=== PATIENT | female | born 1995 | race Two or more races ===

== ENCOUNTER 2017-08-08 22:17 | Emergency (ER) | payer OTHER ==
[2017-08-08 22:22] VITALS: BP 102/70
== END 2017-08-08 22:26 | disposition left against medical advice (07) ==
LOC: ED 22:17
DX: L50.9 Urticaria, unspecified (principal); Z53.21 Procedure and treatment not carried out due to patient leaving prior to being seen by health care provider

== ENCOUNTER → 2018-09-06 13:39 | Emergency (ER) | payer OTHER ==
[~2018-09-06 13:39] MED LIST: Ketorolac INJ* 30 MG/ML 1 ML VIAL IV PUSH ONE; Ondansetron INJ* 2 MG/ML VIAL IV ONE
[2018-09-06 14:57] LABS: Hematocrit 35 % (35-47); Hemoglobin 11.3 g/dl (12.0-16.0); Mean Corpuscular HGB Conc 33 g/dl (31-36); Mean Corpuscular Hemoglobin 19 pg (27-31); Mean Corpuscular Volume 58 fL (80-97); Mean Platelet Volume 8.6 um3 (7.4-10.4); Platelet Count 304 10^3/ul (150-450); Red Blood Count 5.92 10^6/ul (4.00-5.40); Red Cell Distribution Width 17 % (10.5-15); White Blood Count 9.2 10^3/ul (3.5-10.8)
[2018-09-06 15:13] LABS: EGFR Non-African American 150.8 (>60)
--- NOTE | 2018-09-06 15:48 | RAD ---
INDICATION: Right upper quadrant pain. COMPARISON: There are no relevant prior studies available for comparison. TECHNIQUE: Multiple real-time images of the right upper quadrant were obtained. FINDINGS: The gallbladder appear normal. No gallstones, gallbladder wall thickening or pericholecystic fluid is present. No intra or extrahepatic ductal distention is present. The common bile duct measured 0.2 cm in diameter. The liver is normal in size without significant focal abnormality. The pancreas is partially obscured by overlying bowel gas. The right kidney is normal in size without evidence for hydronephrosis. IMPRESSION: NEGATIVE EXAM.
[2018-09-06 16:06] LABS: ABS Basophils 0.1 10^3/ul (0-0.2); ABS Eosinophils 0.1 10^3/ul (0-0.6); ABS Lymphocytes 2.7 10^3/ul (1.0-4.8); ABS Monocytes 0.6 10^3/ul (0-0.8); ABS Neutrophils 5.8 10^3/ul (1.5-7.7); ABS Nucleated RBC 0 10^3/ul; Eosinophil % 0.6 % (0-6); Lymphocyte % 29.8 % (25-47); Nucleated Red Blood Cells % 0.1
[2018-09-06 16:30] LABS: Urine Appearance Cloudy; Urine Blood Negative (Negative); Urine Color Yellow; Urine Ketones Negative (Negative); Urine Protein Negative (Negative); Urine Red Blood Cell Trace(0-2/hpf) (Absent); Urine Specific Gravity 1.014 (1.010-1.030); Urine Urobilinogen Negative (Negative); Urine White Blood Cell Trace(0-5/hpf) (Absent)
--- NOTE | 2018-09-06 16:45 | ED ---
Abdominal Pain/Female - HPI Summary HPI Summary: Patient is a 23-year-old female who presents emergency department for right upper quadrant abdominal pain that started yesterday. Patient was initially seen at [facility] referred to the ER for further evaluation. I did speak with referring physician who states the patient did have an x-ray at [facility] and it showed constipation. Patient states she has had a bowel movement since x -ray and her pain persists. She is no past medical history. Associated symptoms of nausea. Pain is worse increased with food and movement.. She denies fever, chills, vomiting, diarrhea, urinary symptoms, vaginal discharge or bleeding. She denies recent illness, fever, cough. Symptoms are moderate in severity. - History of Current Complaint Chief Complaint: EDAbdPain Stated Complaint: ABDOMINAL PAIN Time Seen by Provider: 09/06/18 14:00 Hx Obtained From: Patient Pain Intensity: 5 Allergies/Adverse Reactions: Allergies Allergy/AdvReac Type Severity Reaction Status Date / Time kiwi Allergy Swelling Verified 09/06/18 13:50 Of Face,Lips,& Throat Home Medications: Home Medications NK [No Home Medications Reported] 09/06/18 [History Confirmed 09/06/18] PMH/Surg Hx/FS Hx/Imm Hx Previously Healthy: Yes Infectious Disease History: No Infectious Disease History: Reports: Traveled Outside the [place] in Last 30 Days - back from 08/24 - Family History Known Family History: Positive: Other - Noncontributory - Social History Occupation: Student Lives: Dormitory/Roommates Alcohol Use: Occasionally Substance Use Type: Reports: None Smoking Status (MU): Never Smoked Tobacco Review of Systems Constitutional: Negative Negative: Fever, Chills Eyes: Negative ENT: Negative Cardiovascular: Negative Respiratory: Negative Negative: Shortness Of Breath, Cough Positive: Abdominal Pain, Nausea. Negative: Vomiting, Diarrhea Genitourinary: Negative Neurological: Negative All Other Systems Reviewed And Are Negative: Yes Physical Exam Triage Information Reviewed: Yes Vital Signs On Initial Exam: Initial Vitals Temp Pulse Resp BP Pulse Ox 98 F 97 16 116/79 99 09/06/18 13:46 09/06/18 13:46 09/06/18 13:46 09/06/18 13:46 09/06/18 13:46 Vital Signs Reviewed: Yes Appearance: Positive: Well-Appearing - Pt. sitting on bed in no acute distress. Friend present. Skin: Positive: Warm, Dry Head/Face: Positive: Normal Head/Face Inspection Eyes: Positive: Normal, EOMI, Conjunctiva Clear ENT: Positive: Pharynx normal, TMs normal Neck: Positive: Supple Respiratory/Lung Sounds: Positive: Clear to Auscultation, Breath Sounds Present Cardiovascular: Positive: Normal, RRR Abdomen Description: Positive: Other: - Abd. is soft with pain over the RUQ. Mildly positive Cook sign. No pain at Mcburney's point. No rebound tenderness or guarding. Neurological: Positive: Normal, CN Intact II-III Psychiatric: Positive: Affect/Mood Appropriate Diagnostics - Vital Signs Vital Signs Temp Pulse Resp BP Pulse Ox 09/06/18 13:46 98 F 97 16 116/79 99 - Laboratory Lab Results: Lab Results 09/06/18 09/06/18 09/06/18 Range/Units 14:39 14:39 15:57 WBC 9.2 (3.5-10.8) 10^3/ul RBC 5.92 H (4.00-5.40) 10^6/ul Hgb 11.3 L (12.0-16.0) g/dl Hct 35 (35-47) % MCV 58 L (80-97) fL MCH 19 L (27-31) pg MCHC 33 (31-36) g/dl RDW 17 H (10.5-15) % Plt Count 304 (150-450) 10^3/ul MPV 8.6 (7.4-10.4) um3 Neut % (Auto) 62.5 (38-83) % Lymph % (Auto) 29.8 (25-47) % [place] % (Auto) 6.2 (0-7) % Eos % (Auto) 0.6 (0-6) % Baso % (Auto) 0.9 (0-2) % Absolute Neuts (auto) 5.8 (1.5-7.7) 10^3/ul Absolute Lymphs (auto) 2.7 (1.0-4.8) 10^3/ul Absolute Monos (auto) 0.6 (0-0.8) 10^3/ul Absolute Eos (auto) 0.1 (0-0.6) 10^3/ul Absolute Basos (auto) 0.1 (0-0.2) 10^3/ul Absolute Nucleated RBC 0 10^3/ul Nucleated RBC % 0.1 Hypochromasia 1+ Microcytosis 2+ Hem Pathologist Commnt Pending Sodium 137 (135-145) mmol/L Potassium 3.9 (3.5-5.0) mmol/L Chloride 106 (101-111) mmol/L Carbon Dioxide 27 (22-32) mmol/L Anion Gap 4 (2-11) mmol/L BUN 9 (6-24) mg/dL Creatinine 0.51 (0.51-0.95) mg/dL Est GFR ( Amer) 182.5 (>60) Est GFR (Non-Af Amer) 150.8 (>60) BUN/Creatinine Ratio 17.6 (8-20) Glucose 86 (70-100) mg/dL Calcium 9.1 (8.6-10.3) mg/dL Total Bilirubin 0.70 (0.2-1.0) mg/dL AST 9 L (13-39) U/L ALT 8 (7-52) U/L Alkaline Phosphatase 45 (34-104) U/L Total Protein 6.8 (6.4-8.9) g/dL Albumin 4.0 (3.2-5.2) g/dL Globulin 2.8 (2-4) g/dL Albumin/Globulin Ratio 1.4 (1-3) Beta HCG, Quant < 0.60 mIU/mL Urine Color Yellow Urine Appearance Cloudy Urine pH 7.0 (5-9) Ur Specific [place] 1.014 (1.010-1.030) Urine Protein Negative (Negative) Urine Ketones Negative (Negative) Urine Blood Negative (Negative) Urine Nitrate Negative (Negative) Urine Bilirubin Negative (Negative) Urine Urobilinogen Negative (Negative) Ur Leukocyte Esterase 3+ A (Negative) Urine WBC (Auto) Trace(0-5/hpf) (Absent) Urine RBC (Auto) Trace(0-2/hpf) (Absent) Ur Squamous Epith Cells Present A (Absent) Urine Bacteria 1+ A (Absent) Urine Glucose Negative (Negative) Result Diagrams: 09/06/18 14:39 09/06/18 14:39 Lab Statement: Any lab studies that have been ordered have been reviewed, and results considered in the medical decision making process. Abdominal Pain Fem Course/Dx - Course Course Of Treatment: Patient presenting with right upper quadrant abdominal pain and nausea. She is afebrile well-appearing. We'll obtain gallbladder ultrasound further evaluation and basic labs. We'll give IV Toradol and Zofran and reassess. Blood work is unremarkable including negative and negative urinalysis. Gallbladder ultrasound shows no abnormalities to liver gallbladder or kidney, reading per radiology. Reexamination patient is resting more comfortably and her pain has improved. Her abdomen was reexamined and she has minimal tenderness to the right upper quadrant at this time. Unclear of exact etiology of patient's pain. She is comfortable with close follow-up at [facility] if pain persists. Recommend anti-inflammatories. Discussed possible need for HIDA scan for further evaluation if right upper quadrant pain persists. Advised to return to the ER for increased pain, vomiting, fever or if concerned. Patient understands and agrees with plan. - Diagnoses Differential Diagnosis: Positive: Constipation, Ectopic , Gall Bladder Disease, Hepatitis, Ovarian Cyst, Pneumonia, , Renal Colic Provider Diagnoses: Abdominal pain Discharge - Sign-Out/Discharge Documenting (check all that apply): Patient Departure - Discharge Plan Condition: Good Disposition: HOME Patient Education Materials: Biliary Colic (ED), Abdominal Pain (ED) Referrals: No Primary Care Phys,NOPCP [Primary Care Provider] - [facility] [Outside] Additional Instructions: Call the [facility] tomorrow to schedule a follow up appointment NSAIDS for pain as directed such as ibuprofen Return to ER for increased pain, fever, vomiting or if concerned - Billing Disposition and Condition Condition: GOOD Disposition: Home
[2018-09-06 17:20] VITALS: BP 96/66
== END | disposition home or self-care (01) ==
LOC: ED 13:39
DX: R10.11 Right upper quadrant pain (principal)
CPT/HCPCS: 36415; 76705; 80053; 81003; 81015; 84702; 85025; 85060; 87086; 96374; 96375; 99283; J1885; J2405

== ENCOUNTER 2018-09-08 14:30 | Emergency (ER) | payer OTHER, BC ==
[2018-09-08] MEDS ORDERED: NS 0.9% 1000 ML* 1,000 ML IV ONE (16:13)
[2018-09-08 16:40] LABS: ABS Basophils 0.1 10^3/ul (0-0.2); ABS Eosinophils 0.1 10^3/ul (0-0.6); ABS Lymphocytes 2.7 10^3/ul (1.0-4.8); ABS Monocytes 0.6 10^3/ul (0-0.8); ABS Neutrophils 7.3 10^3/ul (1.5-7.7); ABS Nucleated RBC 0 10^3/ul; Eosinophil % 0.7 % (0-6); Hematocrit 35 % (35-47); Hemoglobin 11.2 g/dl (12.0-16.0); Lymphocyte % 25.1 % (25-47); Mean Corpuscular HGB Conc 32 g/dl (31-36); Mean Corpuscular Hemoglobin 19 pg (27-31); Mean Corpuscular Volume 58 fL (80-97); Mean Platelet Volume 8.4 um3 (7.4-10.4); Nucleated Red Blood Cells % 0.1; Platelet Count 304 10^3/ul (150-450); Red Blood Count 5.99 10^6/ul (4.00-5.40); Red Cell Distribution Width 17 % (10.5-15); White Blood Count 10.7 10^3/ul (3.5-10.8)
[2018-09-08 16:41] LABS: INR 1.09 (0.77-1.02)
[2018-09-08] MEDS ORDERED: Ondansetron INJ* 2 MG/ML VIAL ONE (17:01)
[2018-09-08] MEDS ORDERED: Morphine INJ* 4 MG/ML 1 ML SYRINGE (NEW SYRINGE VERSION) ONE (17:01)
[2018-09-08 17:03] LABS: Urine Appearance Cloudy; Urine Blood Negative (Negative); Urine Color Yellow; Urine Ketones Negative (Negative); Urine Protein Negative (Negative); Urine Red Blood Cell 2+(6-10/hpf) (Absent); Urine Specific Gravity 1.019 (1.010-1.030); Urine Urobilinogen Negative (Negative); Urine White Blood Cell 1+(6-10/hpf) (Absent)
[2018-09-08] MEDS ORDERED: Morphine INJ* 4 MG/ML 1 ML SYRINGE (NEW SYRINGE VERSION) IV ONE (17:04)
[2018-09-08] MEDS ORDERED: Ondansetron INJ* 2 MG/ML VIAL IV ONE (17:04)
[2018-09-08] MEDS ORDERED: Iohexol 300* (CONTRAST) 10 ML SDV IV ONE (17:42)
--- NOTE | 2018-09-08 18:00 | ED ---
Abdominal Pain/Female - HPI Summary HPI Summary: Patient is a 23 y/o F w/ c/o RLQ abdominal pain for the past three days. Nausea is endorsed, diarrhea and constipation are denied. She states that she came to [facility] two days ago and received an ultrasound which she reports was negative. Patient is presenting to the ED with still present abdominal pain and wants to receive CT abd/pel. She notes that she still has appendix, denies smoking, alc/ drug usage. On triage, pain is rated 7/10, nothing is noted to aggravate/ alleviate Sx. Home medications and allergies are reviewed. - History of Current Complaint Chief Complaint: EDAbdPain Stated Complaint: FLANK PAIN Time Seen by Provider: 09/08/18 16:04 Hx Obtained From: Patient Onset/Duration: Lasting Days - three days, Still Present Timing: Constant Severity Currently: Severe - 7/10 Pain Intensity: 7 Pain Scale Used: 0-10 Numeric - 7/10 Location: Discrete At: RLQ Radiates: No Aggravating Factor(s): Nothing Alleviating Factor(s): Nothing Associated Signs and Symptoms: Positive: Nausea. Negative: Constipation, Diarrhea Allergies/Adverse Reactions: Allergies Allergy/AdvReac Type Severity Reaction Status Date / Time kiwi Allergy Swelling Verified 09/08/18 14:48 Of Face,Lips,& Throat PMH/Surg Hx/FS Hx/Imm Hx Endocrine/Hematology History: Denies: Hx Diabetes Cardiovascular History: Denies: Hx Hypertension Sensory History: Denies: Hx Legally Blind Opthamlomology History: Denies: Hx Legally Blind Infectious Disease History: No Infectious Disease History: Reports: Traveled Outside the in Last 30 Days - [place] - Family History Known Family History: Negative: Blood Disorder - Social History Alcohol Use: Occasionally Substance Use Type: Reports: None Smoking Status (MU): Never Smoked Tobacco Review of Systems Negative: Fever - on vitals, temp is 97.5 F Positive: Abdominal Pain - RLQ , Nausea, Other - NEGATIVE: constipation . Negative: Diarrhea All Other Systems Reviewed And Are Negative: Yes Physical Exam - Summary Physical Exam Summary: Appearance: Well appearing, no pain distress Skin: warm, dry, reflects adequate perfusion Head/face: normal Eyes: EOMI, JADEN ENT: normal Neck: supple, non-tender Respiratory: CTA, breath sounds present Cardiovascular: RRR, pulses symmetrical Abdomen: RLQ tenderness, soft Bowel: present Musculoskeletal: normal, strength/ROM intact Neuro: normal, sensory motor intact, A&Ox3 Triage Information Reviewed: Yes Vital Signs On Initial Exam: Initial Vitals Temp Pulse Resp BP Pulse Ox 97.5 F 76 14 116/83 100 09/08/18 14:44 09/08/18 14:44 09/08/18 14:44 09/08/18 14:44 09/08/18 14:44 Vital Signs Reviewed: Yes Diagnostics - Vital Signs Vital Signs Temp Pulse Resp BP Pulse Ox 09/08/18 17:30 68 112/70 98 09/08/18 17:04 18 09/08/18 17:01 75 100 09/08/18 17:00 75 117/81 100 09/08/18 16:31 82 100 09/08/18 16:30 91 123/91 100 09/08/18 14:44 97.5 F 76 14 116/83 100 - Laboratory Lab Results: Lab Results 09/08/18 09/08/18 09/08/18 Range/Units 16:21 16:21 16:21 WBC 10.7 (3.5-10.8) 10^3/ul RBC 5.99 H (4.00-5.40) 10^6/ul Hgb 11.2 L (12.0-16.0) g/dl Hct 35 (35-47) % MCV 58 L (80-97) fL MCH 19 L (27-31) pg MCHC 32 (31-36) g/dl RDW 17 H (10.5-15) % Plt Count 304 (150-450) 10^3/ul MPV 8.4 (7.4-10.4) um3 Neut % (Auto) 67.9 (38-83) % Lymph % (Auto) 25.1 (25-47) % [place] % (Auto) 5.7 (0-7) % Eos % (Auto) 0.7 (0-6) % Baso % (Auto) 0.6 (0-2) % Absolute Neuts (auto) 7.3 (1.5-7.7) 10^3/ul Absolute Lymphs (auto) 2.7 (1.0-4.8) 10^3/ul Absolute Monos (auto) 0.6 (0-0.8) 10^3/ul Absolute Eos (auto) 0.1 (0-0.6) 10^3/ul Absolute Basos (auto) 0.1 (0-0.2) 10^3/ul Absolute Nucleated RBC 0 10^3/ul Nucleated RBC % 0.1 Hypochromasia 2+ Microcytosis 2+ INR (Anticoag Therapy) 1.09 H (0.77-1.02) APTT 30.6 (26.0-36.3) seconds Lipase 13 (11.0-82.0) U/L Beta HCG, Quant < 0.60 mIU/mL Urine Color Urine Appearance Urine pH (5-9) Ur Specific [place] (1.010-1.030) Urine Protein (Negative) Urine Ketones (Negative) Urine Blood (Negative) Urine Nitrate (Negative) Urine Bilirubin (Negative) Urine Urobilinogen (Negative) Ur Leukocyte Esterase (Negative) Urine WBC (Auto) (Absent) Urine RBC (Auto) (Absent) Ur Squamous Epith Cells (Absent) Urine Bacteria (Absent) Urine Glucose (Negative) Blood Type Antibody Screen 09/08/18 09/08/18 Range/Units 16:21 16:35 WBC (3.5-10.8) 10^3/ul RBC (4.00-5.40) 10^6/ul Hgb (12.0-16.0) g/dl Hct (35-47) % MCV (80-97) fL MCH (27-31) pg MCHC (31-36) g/dl RDW (10.5-15) % Plt Count (150-450) 10^3/ul MPV (7.4-10.4) um3 Neut % (Auto) (38-83) % Lymph % (Auto) (25-47) % [place] % (Auto) (0-7) % Eos % (Auto) (0-6) % Baso % (Auto) (0-2) % Absolute Neuts (auto) (1.5-7.7) 10^3/ul Absolute Lymphs (auto) (1.0-4.8) 10^3/ul Absolute Monos (auto) (0-0.8) 10^3/ul Absolute Eos (auto) (0-0.6) 10^3/ul Absolute Basos (auto) (0-0.2) 10^3/ul Absolute Nucleated RBC 10^3/ul Nucleated RBC % Hypochromasia Microcytosis INR (Anticoag Therapy) (0.77-1.02) APTT (26.0-36.3) seconds Lipase (11.0-82.0) U/L Beta HCG, Quant mIU/mL Urine Color Yellow Urine Appearance Cloudy Urine pH 5.0 (5-9) Ur Specific [place] 1.019 (1.010-1.030) Urine Protein Negative (Negative) Urine Ketones Negative (Negative) Urine Blood Negative (Negative) Urine Nitrate Negative (Negative) Urine Bilirubin Negative (Negative) Urine Urobilinogen Negative (Negative) Ur Leukocyte Esterase 3+ A (Negative) Urine WBC (Auto) 1+(6-10/hpf) A (Absent) Urine RBC (Auto) 2+(6-10/hpf) A (Absent) Ur Squamous Epith Cells Present A (Absent) Urine Bacteria 1+ A (Absent) Urine Glucose Negative (Negative) Blood Type B Positive Antibody Screen Negative Result Diagrams: 09/08/18 16:21 Lab Statement: Any lab studies that have been ordered have been reviewed, and results considered in the medical decision making process. Abdominal Pain Fem Course/Dx - Course Course Of Treatment: Patient is a 23 y/o F w/ c/o RLQ abdominal pain for the past three days. Nausea is endorsed, diarrhea and constipation are denied. She states that she came to [facility] two days ago and received an ultrasound which she reports was negative. Patient is presenting to the ED with still present abdominal pain and wants to receive CT abd/pel. She notes that she still has appendix, denies smoking, alc/drug usage. On physical exam, patient is noted to have RLQ tenderness. During ED course, patient was given Zofran and morphine. Bloodwork/UA was obtained. Patient is signed out to Dr. Herrmann pending results of CT abd/pel. Dx of abdominal pain. - Diagnoses Provider Diagnoses: Abdominal pain Discharge - Sign-Out/Discharge Documenting (check all that apply): Sign-Out Patient Signing out patient TO: Ruperto Herrmann Receiving patient FROM: Pedro Trammell - Discharge Plan Condition: Stable Disposition: HOME Prescriptions: Oxycodone HCl 5 mg PO Q4HR PRN #8 tablet MDD 4 tabs PRN Reason: Pain Patient Education Materials: Ovarian Cyst (ED) Referrals: Cathy Cintron MD [Medical Doctor] - 3 Days (if not bdetter) - Billing Disposition and Condition Condition: STABLE Disposition: Home - Attestation Statements Document Initiated by Trangibhiginio: Yes Documenting Scribe: Sajan Allen Provider For Whom Trangibe is Documenting (Include Credential): Pedro Trammell MD Scribe Attestation: Sajan Rose , scribed for Pedro Trammell MD on 09/09/18 at 0721. Scribe Documentation Reviewed: Yes Provider Attestation: The documentation as recorded by the Sajan padilla accurately reflects the service I personally performed and the decisions made by me, Pedro Trammell MD
--- NOTE | 2018-09-08 19:24 | RAD ---
EXAM: CT Abdomen and Pelvis With Intravenous Contrast EXAM DATE/TIME: 09/08/2018 6:32 PM CLINICAL HISTORY: 23 years old, female; Pain; Abdominal pain; Additional info: RT lower quad tend R/O appendicitis TECHNIQUE: Axial computed tomography images of the abdomen and pelvis with intravenous contrast. All CT scans at this facility use at least one of these dose optimization techniques: automated exposure control; mA and/or kV adjustment per patient size (includes targeted exams where dose is matched to clinical indication); or iterative reconstruction. Coronal and sagittal reformatted images were created and reviewed. CONTRAST: 68 ml of OMNI 300 administered intravenously. COMPARISON: GB US GALL BLADDER 09/06/2018 3:01 PM FINDINGS: Lower thorax: No acute findings. ABDOMEN: Liver: Normal. No mass. Gallbladder and bile ducts: Normal. No calcified stones. No ductal dilation. Pancreas: Normal. No ductal dilation. Spleen: Normal. No splenomegaly. Adrenals: Normal. No mass. Kidneys and ureters: Normal. No hydronephrosis. Stomach and bowel: Normal. No obstruction. No mucosal thickening. Appendix: No secondary signs of appendicitis. Appendix not confidently identified. PELVIS: Bladder: Unremarkable as visualized. Reproductive: Small right ovarian cyst measuring approximately 2 cm noted. ABDOMEN and PELVIS: Intraperitoneal space: Normal. No free air. No significant fluid collection. Bones/joints: No acute fracture. No dislocation. Soft tissues: Unremarkable. Vasculature: Normal. No abdominal aortic aneurysm. Lymph nodes: Normal. No enlarged lymph nodes. IMPRESSION: 1. Right ovarian cyst. 2. No acute intra-abdominal findings. To contact [facility] with a general question: [facility] - [phone] For direct physician to physician contact: Physician Hotline - [phone] [facility] ([facility] Facility ID #[id number])
--- NOTE | 2018-09-08 19:49 | ED ---
Progress - Progress Note Progress Note: Patient is signed out from Dr. Trammell awaiting CT A/P results and disposition. CT A/P reveals: 1. Right ovarian cyst. 2. No acute intra-abdominal findings. ED Physician has reviewed CT report. Course/Dx - Course Course Of Treatment: Patient is a 23 y/o F w/ c/o RLQ abdominal pain for the past three days. Patient is signed out from Dr. Trammell awaiting CT A/P to rule out appendicitis. A CT A/P reveals a right ovaraian cyst but is otherwise unremarkable. Results discussed with patient. Patient will be discharged. - Diagnoses Provider Diagnoses: Abdominal pain Discharge - Sign-Out/Discharge Documenting (check all that apply): Receiving Sign-Out Receiving patient FROM: Pedro Trammell - Discharge Plan Condition: Stable Disposition: HOME Prescriptions: Oxycodone HCl 5 mg PO Q4HR PRN #8 tablet MDD 4 tabs PRN Reason: Pain Patient Education Materials: Ovarian Cyst (ED) Referrals: Cathy Cintron MD [Medical Doctor] - 3 Days (if not bdetter) - Attestation Statements Document Initiated by Scribe: Yes Documenting Scribe: Eula Wall Provider For Whom Scribe is Documenting (Include Credential): Ruperto Herrmann MD Scribe Attestation: Eula Rose, scribed for Ruperto Herrmann MD on 09/08/18 at 2033.
[2018-09-08] MEDS ORDERED: oxyCODONE TAB* 5 MG TAB PO ONE (19:54)
[2018-09-08 20:52] VITALS: BP 112/69
== END 2018-09-08 20:50 | disposition home or self-care (01) ==
LOC: ED 14:30
DX: R10.31 Right lower quadrant pain (principal); N83.201 Unspecified ovarian cyst, right side
CPT/HCPCS: 36415; 74177; 81003; 81015; 83690; 84702; 85025; 85610; 85730; 86850; 86900; 86901; 87077; 87086; 96361; 96374; 96375; 99283; A9270-GY; J2270; J2405; Q9967